=== PATIENT | female | born 1975 | race Caucasian/White ===

== ENCOUNTER 2019-03-21 18:31 | Observation (INO) ==
[2019-03-21] MEDS ORDERED: IOPAMIDOL 100 ML BOTTLE IV ONE (18:32)
[2019-03-21] MEDS ORDERED: 0.9 % SODIUM CHLORIDE 1,000 ML IV ONE ×2 (18:50→21:29)
[2019-03-21] MEDS ORDERED: HYDROmorphone 2 MG/ML VIAL IV ONE ×2 (18:57)
[2019-03-21] MEDS ORDERED: PHENobarb/HYOSCY/ATROPINE/SCOP 1 DOSE BOTTLE PO ONE ×2 (18:59→21:31)
--- NOTE | 2019-03-21 19:16 | Emergency Department Note ---
Chest Pain HPI - General Chief Complaint: Chest Pain Stated Complaint: L sided chest pain Time Seen by Provider: 03/21/19 18:57 Source: patient, EMS Mode of arrival: EMS - Related Data Home Medications Medication Instructions Recorded Confirmed Cyanocobalamin (Vitamin B-12) 1,000 mcg PO DAILY 03/21/19 03/21/19 [Vitamin B-12] buPROPion HCL [Wellbutrin Xl] 150 mg PO DAILY 03/21/19 03/21/19 Allergies Allergy/AdvReac Type Severity Reaction Status Date / Time Sulfa (Sulfonamide Allergy Rash Verified 03/21/19 18:41 Antibiotics) Chest Pain PMH - Social History smoking status: Former smoker Course Course Narrative: Pt was seen by Dr. Contreras today. Vital Signs Temperature 97.1 F 03/21/19 18:32 Pulse Rate 97 H 03/21/19 18:32 Respiratory Rate 26 H 03/21/19 18:32 Blood Pressure 153/93 03/21/19 18:32 Pulse Oximetry (%) 99 03/21/19 18:32 Temperature 97.1 F 03/21/19 18:32 Pulse Rate 78 03/21/19 18:46 Respiratory Rate 19 03/21/19 18:46 Blood Pressure 121/77 03/21/19 18:46 Pulse Oximetry (%) 99 03/21/19 18:46 Chest Pain - Lab Data Result diagrams: 03/21/19 19:00 03/21/19 19:00 Disposition Pt seen by CASE FINISHING MACHINE ADJUSTER/PA only: No (Dr. Contreras is seeing the patient today) Disposition: Still a Patient Referrals: Nichole Hollins [Primary Care Provider] -
[2019-03-21 19:19] LABS: POC Blood Urea Nitrogen 6 mg/dl (6-20); POC CO2 19 mmol/L (22-30); POC Calcium, Ionized 1.05 mmol/L (1.16-1.32); POC Chloride 107 mmol/L (96-108); POC Glucose, Random 86 mg/dL (70-105); POC Potassium 4.5 mmol/L (3.3-5.1); POC Sodium 139 mmol/L (133-145)
--- NOTE | 2019-03-21 19:23 | Emergency Department Note ---
Chest Pain HPI - General Chief Complaint: Chest Pain Stated Complaint: L sided chest pain Time Seen by Provider: 03/21/19 18:57 Source: patient, EMS Mode of arrival: EMS - History of Present Illness MD complaint: chest pain Onset (ago): hour(s) Duration: constant Onset: other (After drinking alcohol) Pain Location: substernal, epigastric Severity: moderate Severity scale (1-10): 10 Quality: tightness, sharp Pain Radiation: back Improves with: nothing, other (Patient had fentanyl in the ambulance as well as Dilaudid here) Worsens with: nothing Associated symptoms: Reports: nausea Treatments prior to arrival chest pain: other (Fentanyl) - Related Data Home Medications Medication Instructions Recorded Confirmed Cyanocobalamin (Vitamin B-12) 1,000 mcg PO DAILY 03/21/19 03/21/19 [Vitamin B-12] buPROPion HCL [Wellbutrin Xl] 150 mg PO DAILY 03/21/19 03/21/19 Allergies Allergy/AdvReac Type Severity Reaction Status Date / Time Sulfa (Sulfonamide Allergy Rash Verified 03/21/19 18:41 Antibiotics) Review of Systems All systems ED: reviewed and negative except as stated. Chest Pain PMH - Past Medical History Medical history: Reports: other (Has had one other episode of abdominal pain like this in the past) Surgical history ED: Reports: cholecystectomy MANAGER NON PROFIT history: Reports: non-contributory - Social History smoking status: Former smoker Physical Exam Limitations: no limitations General appearance: alert, in distress Head: atraumatic, normocephalic Eye: Present: normal appearance, PERRL, EOMI. Absent: scleral icterus, conjunctival injection ENT: Present: normal oropharynx, mucous membranes moist Neck: Present: trachea midline. Absent: lymphadenopathy, thyromegaly Chest: Present: symmetric chest wall rise Respiratory: Present: normal lung sounds bilaterally. Absent: respiratory distress, wheezes, stridor, accessory muscle use, prolonged expiratory phase Cardiovascular: Present: regular rate, normal rhythm. Absent: systolic murmur, diastolic murmur Abdominal: Present: soft, tenderness. Absent: distention, guarding, rebound, rigidity, organomegaly, mass Abdominal tenderness: Present: epigastrium Extremities: Absent: pedal edema, pretibial edema, calf tenderness Back: Present: normal inspection, full ROM. Absent: CVA tenderness (R), CVA tenderness (L), spinous process tenderness Neurological: Present: alert, oriented X3 Psychiatric: Present: normal affect, normal mood Skin: Present: warm, dry Course Course Narrative: 44-year-old female presenting to the emergency department chief complaint of midepigastric abdominal pain that radiates into her back also into her chest as well. Patient without vomiting diarrhea, she does have nausea. Patient in extreme pain on presentation was treated with Dilaudid and fentanyl as well as Toradol and Phenergan with benefit. Laboratory evaluation was also performed demonstrating elevated lipase with CT scan demonstrating potentially this partial small bowel obstruction. Differential diagnosis considered in this case included: Obstruction, perforation, mesenteric ischemia, Crohn's disease, ulcerative colitis, viral gastroenteritis, spontaneous bacterial peritonitis, ketoacidosis, adrenal insufficiency, foodborne illness, IBS, constipation, diverticulosis, diverticulitis, AAA, abdominal compartment syndrome, abdominal migraine, chronic abdominal pain, colonic pseudoobstruction, zoster, hypercalcemia, hypothyroidism, pulmonary causes, nephrolithiasis, pyelonep hritis, urinary tract infection, appendicitis, AMI, pancreatitis, peptic ulcer disease, GERD, gastritis, functional dyspepsia, gastroparesis, cyclical vomiting syndrome. Given findings on CT scan and labs discussed the case with general surgery Dr. Tsai and the consensus medical opinion is that absent her gallbladder patient very reasonably should be admitted to medical for alcoholic pancreatitis and potentially a partial small bowel obstruction. I discussed the case with Dr. High hospitalist and the consensus opinion was to use my medical judgment to determine if patient is going to be staying for more than 48 hours to midnight rule for will likely be going home within the next 24 hours. In my medical opinion at this time patient very likely will be discharged tomorrow however she is being admitted to the hospital and it can be difficult to discern what the clinical course will be however she is feeling substantially better after treatment in the emergency department. Her elevated lipase combined with abnormality on CT scan is sufficient to require hospitalization. I do not feel patient needs a NG tube at this point secondary to no vomiting currently. Vital Signs Temperature 97.1 F 03/21/19 18:32 Pulse Rate 97 H 03/21/19 18:32 Respiratory Rate 26 H 03/21/19 18:32 Blood Pressure 153/93 03/21/19 18:32 Pulse Oximetry (%) 99 03/21/19 18:32 Temperature 97.1 F 08/31/19 18:32 Pulse Rate 72 03/22/19 00:31 Respiratory Rate 13 03/22/19 00:31 Blood Pressure 112/74 03/22/19 00:31 Pulse Oximetry (%) 96 03/22/19 00:31 Chest Pain - Lab Data Result diagrams: 03/21/19 19:00 03/21/19 19:18 Lab Results 03/21/19 03/21/19 03/21/19 Range/Units 19:00 19:00 19:00 WBC 7.8 (4.5-11.0) K/mcL RBC 4.42 (4.00-5.20) M/mcL Hgb 14.0 (12.0-15.0) g/dL Hct 41.3 (36.0-48.0) % POC Hct (36.0-48.0) % MCV 93.4 (80.0-100.0) fL MCH 31.7 (26.0-34.0) pg MCHC 33.9 (31.0-36.0) g/dL RDW 12.1 (11.5-14.5) % Plt Count 213 (140-440) K/mcL MPV 9.9 (7.4-10.4) fL Gran % 63.5 (38.0-78.0) % Lymph % (Auto) 28.9 (15.5-49.0) % [place] % (Auto) 6.2 (1.0-12.0) % Eos % (Auto) 1.0 (0.0-7.0) % Baso % (Auto) 0.4 (0.0-2.0) % Gran # 5.0 (1.8-8.0) K/mcL Lymph # (Auto) 2.3 (1.5-4.8) K/mcL [place] # (Auto) 0.5 (0.1-0.9) K/mcL Eos # (Auto) 0.1 (0.0-0.7) K/mcL Baso # (Auto) 0 (0.0-0.3) K/mcL D-Dimer (0.00-0.40) ug/ml POC Sodium (133-145) mmol/L Sodium TNP POC Potassium (3.3-5.1) mmol/L Potassium TNP POC Chloride (96-108) mmol/L Chloride TNP Carbon Dioxide TNP POC Total CO2 (22-30) mmol/L Anion Gap TNP POC BUN (6-20) mg/dl BUN TNP Creatinine TNP POC Creatinine (0.6-1.1) mg/dl GFR Calculation TNP Glucose TNP POC Glucose (70-105) mg/dL Calcium TNP POC WB Ioniz Calcium (1.16-1.32) mmol/L Total Bilirubin TNP AST TNP ALT TNP Alkaline Phosphatase TNP Troponin T TNP Total Protein TNP Albumin TNP Globulin TNP Albumin/Globulin Ratio TNP Amylase TNP Lipase TNP 03/21/19 03/21/19 03/21/19 Range/Units 19:00 19:00 19:18 WBC (4.5-11.0) K/mcL RBC (4.00-5.20) M/mcL Hgb (12.0-15.0) g/dL Hct (36.0-48.0) % POC Hct 40.0 (36.0-48.0) % MCV (80.0-100.0) fL MCH (26.0-34.0) pg MCHC (31.0-36.0) g/dL RDW (11.5-14.5) % Plt Count (140-440) K/mcL MPV (7.4-10.4) fL Gran % (38.0-78.0) % Lymph % (Auto) (15.5-49.0) % [place] % (Auto) (1.0-12.0) % Eos % (Auto) (0.0-7.0) % Baso % (Auto) (0.0-2.0) % Gran # (1.8-8.0) K/mcL Lymph # (Auto) (1.5-4.8) K/mcL [place] # (Auto) (0.1-0.9) K/mcL Eos # (Auto) (0.0-0.7) K/mcL Baso # (Auto) (0.0-0.3) K/mcL D-Dimer < 0.27 (0.00-0.40) ug/ml POC Sodium 139 (133-145) mmol/L Sodium 139 POC Potassium 4.5 (3.3-5.1) mmol/L Potassium 3.5 POC Chloride 107 (96-108) mmol/L Chloride 105 Carbon Dioxide 20 L POC Total CO2 19 L (22-30) mmol/L Anion Gap 14.0 POC BUN 6 (6-20) mg/dl BUN 6 Creatinine 0.7 POC Creatinine 1.0 (0.6-1.1) mg/dl GFR Calculation 107 Glucose 79 POC Glucose 86 (70-105) mg/dL Calcium 8.4 L POC WB Ioniz Calcium 1.05 L (1.16-1.32) mmol/L Total Bilirubin 0.4 AST 43 H ALT 21 Alkaline Phosphatase 75 Troponin T Total Protein 6.6 Albumin 4.0 Globulin 2.6 Albumin/Globulin Ratio 1.5 Amylase 321 H Lipase 787 H 03/21/19 Range/Units 19:18 WBC (4.5-11.0) K/mcL RBC (4.00-5.20) M/mcL Hgb (12.0-15.0) g/dL Hct (36.0-48.0) % POC Hct (36.0-48.0) % MCV (80.0-100.0) fL MCH (26.0-34.0) pg MCHC (31.0-36.0) g/dL RDW (11.5-14.5) % Plt Count (140-440) K/mcL MPV (7.4-10.4) fL Gran % (38.0-78.0) % Lymph % (Auto) (15.5-49.0) % [place] % (Auto) (1.0-12.0) % Eos % (Auto) (0.0-7.0) % Baso % (Auto) (0.0-2.0) % Gran # (1.8-8.0) K/mcL Lymph # (Auto) (1.5-4.8) K/mcL [place] # (Auto) (0.1-0.9) K/mcL Eos # (Auto) (0.0-0.7) K/mcL Baso # (Auto) (0.0-0.3) K/mcL D-Dimer (0.00-0.40) ug/ml POC Sodium (133-145) mmol/L Sodium POC Potassium (3.3-5.1) mmol/L Potassium POC Chloride (96-108) mmol/L Chloride Carbon Dioxide POC Total CO2 (22-30) mmol/L Anion Gap POC BUN (6-20) mg/dl BUN Creatinine POC Creatinine (0.6-1.1) mg/dl GFR Calculation Glucose POC Glucose (70-105) mg/dL Calcium POC WB Ioniz Calcium (1.16-1.32) mmol/L Total Bilirubin AST ALT Alkaline Phosphatase Troponin T < 0.01 Total Protein Albumin Globulin Albumin/Globulin Ratio Amylase Lipase - EKG Data EKG shows normal: sinus rhythm Rate: normal Rhythm: NSR [place]ott/QRS: normal QTc: normal Interpretation: no acute changes Disposition Pt seen by PRODUCTION PLANNER SCHEDULER/PA only: No Clinical Impression: Small bowel obstruction, partial Pancreatitis Qualifiers: Chronicity: acute Pancreatitis type: alcohol induced Acute pancreatitis complication: no infection or necrosis Qualified Code(s): K85.20 - Alcohol induced acute pancreatitis without necrosis or infection Disposition: Xfer As Inpt ([facility]) Condition: Fair Instructions: Pancreatitis (ED) Referrals: Nichole Hollins [Primary Care Provider] -
[2019-03-21 19:43] LABS: Basophils # (Auto) 0 K/mcL (0.0-0.3); Basophils % (Auto) 0.4 % (0.0-2.0); Eosinophils # (Auto) 0.1 K/mcL (0.0-0.7); Granulocytes % (Auto) 63.5 % (38.0-78.0); Hematocrit 41.3 % (36.0-48.0); Lymphocytes # (Auto) 2.3 K/mcL (1.5-4.8); Lymphocytes % (Auto) 28.9 % (15.5-49.0); Mean Cell Volume 93.4 fL (80.0-100.0); Mean Corpuscular HGB Conc 33.9 g/dL (31.0-36.0); Mean Platelet Volume 9.9 fL (7.4-10.4); Monocytes # (Auto) 0.5 K/mcL (0.1-0.9); Monocytes % (Auto) 6.2 % (1.0-12.0); Platelet Count 213 K/mcL (140-440); RBC 4.42 M/mcL (4.00-5.20); Red Cell Distribution Width 12.1 % (11.5-14.5); WBC 7.8 K/mcL (4.5-11.0)
[2019-03-21 21:11] LABS: ALT/SGPT 21 U/l (0-40); AST/SGOT 43 U/l (0-37); Albumin/Globulin Ratio 1.5 (1.0-2.3); Alkaline Phosphatase 75 U/L (39-117); Amylase 321 U/L (28-100); Bilirubin,Total 0.4 mg/dL (0.0-1.0); Blood Urea Nitrogen 6 mg/dl (6-20); Calcium 8.4 mg/dl (8.6-10.4); Carbon Dioxide 20 mmol/L (22-30); Chloride 105 mmol/L (96-108); Globulin 2.6 gm/dL (2.2-3.7); Glomerular Filtration Rate 107; Glucose 79 mg/dL (70-105)
[2019-03-21] MEDS ORDERED: PROMETHAZINE 25 MG/ML VIAL IV ONE (21:29)
[2019-03-21] MEDS ORDERED: KETOROLAC 30 MG/ML VIAL IV ONE (21:29)
[2019-03-21] MEDS ORDERED: ONDANSETRON 4 MG/2 ML VIAL IV PRN (23:55)
[2019-03-21] MEDS ORDERED: HYDROmorphone 2 MG/ML VIAL IV PRN (23:55)
[2019-03-22] MEDS: 0.45 % SODIUM CHLORIDE 1,000 ML IV SCH ×2 (01:09→11:14)
[2019-03-22] MEDS ORDERED: 0.9 % SODIUM CHLORIDE 10 ML SYRINGE IV SCH (06:00)
--- NOTE | 2019-03-22 08:23 | XRay Report ---
HISTORY: Chest pain and dyspnea FINDINGS: The lungs are clear and well expanded. The heart size, pulmonary vasculature, mediastinum, nazario and pleura are normal. The patient is leaning to the right. The bones otherwise appear normal. IMPRESSION: Normal chest Interpreted and Authenticated by: Adalberto Finley 03/22/19
--- NOTE | 2019-03-22 08:32 | Cat Scan Report ---
History: Epigastric pain and nausea TECHNIQUE: The patient was imaged following intravenous but no oral contrast from the diaphragm to the symphysis pubis. Sagittal and coronal reformats were created. Radiation exposure was limited using dose reduction technology. Lung bases are clear. There are bilateral subpectoral implants. The heart is normal in size. No hiatus hernia is present. There are couple simple cysts scattered in the liver. The largest is located centrally in the right lobe and measures 11 mm. No solid mass is seen. The overall size of the liver is normal. The gallbladder has been removed. The bile ducts are borderline dilated. Distal common bile duct measures up to 1 cm. This tapers as it passes through the head of the pancreas to the ampulla. There is no evidence of a stone in the distal duct. No mass or inflammation are present in the pancreas. The spleen and adrenals are normal. The kidneys are normal size shape and contour and there is no kidney stone, hydronephrosis or radiographic evidence of pyelonephritis. The aorta and inferior vena cava are normal and there is no plaque formation. There are several loops of mildly dilated jejunum in the left upper quadrant and mid abdomen. They range from 3 to 3.5 cm in size. The lei do not appear to be abnormally thickened or inflamed. The ileum is normal in caliber. There is an ill-defined transition in the mid abdomen but no mass is identified. There is a moderate amount stool throughout the colon. The colon is not abnormally distended. The appendix is noninflamed. No diverticula are present. The stomach is not distended. Few air-fluid levels are present in the small bowel. The uterus is absent. There is a 2.6 x 2.9 cm simple cyst in the left adnexa. Right ovary is normal. Urinary bladder is normally distended and has a thin wall. Trace amount of free fluid is present in the cul-de-sac. IMPRESSION: Nonspecific mild dilatation of the proximal small intestine. This could be due to gastroenteritis or low-grade small bowel obstruction. Mildly dilated bile ducts. This may be a reservoir effect following the prior cholecystectomy and less likely a stricture at the ampulla Scattered cysts in the liver and large follicle in the left ovary Interpreted and Authenticated by: Adalberto Finley 03/22/19
--- NOTE | 2019-03-22 08:43 | Internal Med History&Physical ---
Medical - H&P: [facility] Patient information: Note initiated : 03/22/19 at 8:41 am Service Date, if different from initiated Date: [] Patient: Anitha Trent 44 y/o F admitted on 03/22/19 for L sided chest pain. Chief Complaint: Epigastric/chest pain. History of present illness: Ms. Trent is a 44 year old F who presented to the emergency department a few hours of lower chest/epigastric pain. It was sudden in onset, have been constant and moderate to severe nature. She recalls one prior episode of fairly severe lower chest pain, however that was in the setting of receiving a lidocaine to repair an ear laceration. It radiated to her back, as well as up into her chest and was associated with some nausea, no emesis. No dyspnea, no cough, no fever or chills, no diarrhea. In the emergency department, evaluation was notable for elevated lipase in the 700 range. Imaging of the abdomen showed nonspecific small bowel changes, though the initial wet read was possible transition point and partial small bowel obstruction. She never did have significant emesis, abdominal distention or other symptoms consistent with a bowel obstruction. Further history, the patient has beer on the weekend. Onset was after drinking 1 beer on the evening of presentation. She is previously had a cholecystectomy. No history of high triglycerides, only takes Wellbutrin. Patient was hospitalized for symptomatic management of acute pancreatitis and for observation for evidence of bowel obstruction. All systems: reviewed and no additional remarkable complaints except as stated Medical - H&P: PMH Medical history: Depression Surgical history: Cholecystectomy Pertinent family history: No history of recurrent pancreatitis in the family Social history: Lives with her , drinks socially on weekends. No tobacco use. Medical - H&P: Meds Home Medications Medication Instructions Recorded Confirmed Type Cyanocobalamin (Vitamin B-12) 1,000 mcg PO DAILY 03/21/19 History [Vitamin B-12] buPROPion HCL [Wellbutrin Xl] 150 mg PO DAILY 03/21/19 03/21/19 History Allergies Allergy/AdvReac Type Severity Reaction Status Date / Time Sulfa (Sulfonamide Allergy Rash Verified 03/21/19 18:41 Antibiotics) Medical - H&P: Exam - Constitutional Vitals: Temp Pulse Resp BP Pulse Ox 99.1 F H 60 16 124/81 98 03/22/19 07:29 03/22/19 07:29 03/22/19 07:29 03/22/19 07:29 03/22/19 07:29 Exam: GENERAL: Alert, oriented, in no acute distress. Cooperative, appears stated age. HEENT: Atraumatic. PERRL, conjunctiva clear, no scleral icterus. Hearing grossly intact. Oropharynx with moist mucous membranes. NECK: Supple without meningismus, no thyromegaly RESPIRATORY: Breath sounds clear bilaterally without wheezes or rhonchi. Respiratory effort is unlabored. CARDIOVASCULAR: Regular rate and rhythm, no murmur gallop or rub. No peripheral edema. Carotid pulses 2+. GI: Abdomen (at the time of my exam) soft, nontender, no guarding or rebound. Bowel sounds are present. No hepatosplenomegaly. MUSCULOSKELETAL: No joint erythema or swelling, normal range of motion in all extremities. SKIN: Intact, warm, dry. No lesions. Skin turgor normal. NEUROLOGIC: Cranial nerves II through XII grossly intact. Muscle mass normal. Strength 5/5 in the upper and lower extremities. Sensation intact to light touch bilaterally. PSYCHIATRIC: Alert, oriented x3, normal mood and affect, normal insight. Medical - H&P: Reslt - Labs CBC & Chem 7: 03/21/19 19:00 03/21/19 19:18 Labs: Short CBC 03/21/19 Range/Units 19:00 WBC 7.8 (4.5-11.0) K/mcL Hgb 14.0 (12.0-15.0) g/dL Hct 41.3 (36.0-48.0) % Plt Count 213 (140-440) K/mcL BMP 03/21/19 03/21/19 19:00 19:18 Sodium TNP 139 Potassium TNP 3.5 Chloride TNP 105 Carbon Dioxide TNP 20 L BUN TNP 6 Creatinine TNP 0.7 Glucose TNP 79 Calcium TNP 8.4 L Cardiac Enzymes 03/21/19 03/21/19 Range/Units 19:00 19:18 Troponin T TNP < 0.01 Liver Function 03/21/19 03/21/19 Range/Units 19:00 19:18 Total Bilirubin TNP 0.4 AST TNP 43 H ALT TNP 21 Alkaline Phosphatase TNP 75 Albumin TNP 4.0 - EKG Data -: EKG Reviewed by Myself (Normal sinus rhythm, no injury pattern) - Imaging and Cardiology CT scan - abdomen Status: image reviewed by me Additional comments: IMPRESSION: Nonspecific mild dilatation of the proximal small intestine. This could be due to gastroenteritis or low-grade small bowel obstruction. Mildly dilated bile ducts. This may be a reservoir effect following the prior cholecystectomy and less likely a stricture at the ampulla. Scattered cysts in the liver and large follicle in the left ovary Chest x-ray Status: image reviewed by me Additional comments: Clear, normal chest x-ray Medical - H&P: A/P (1) Pancreatitis Current visit: Yes Status: Resolved - Narrative A/P Narrative: 44-year-old female presenting with acute onset of epigastric pain, radiating to her chest and into her back. After evaluation, found to have elevated lipase. Also had initial concern for possible partial small bowel obstruction based on wet read of CT, though she did not clinically have symptoms of a bowel ob struction. Etiology of pancreatitis likely related to alcohol intake. She drinks socially on the weekends, onset was after a single serving of beer. She is previously had a cholecystectomy, making biliary causes unlikely. No high risk medications for pancreatitis, no familial history, no history of hypertriglyceridemia. Plan: -Observation hospitalization -Pain control -Hydration -Antiemetics as needed Medical - H&P: Qual - VTE Deep Vein Thrombosis/Pulmonary Embolism Present on Admission: No
--- NOTE | 2019-03-22 09:06 | Discharge Summary ---
Medical - DS: Prov Patient information: Note initiated : 03/22/19 at 9:04 am Service Date, if different from initiated Date: [] Patient: Anitha Trent 44 y/o F admitted on 03/22/19 for L sided chest pain. Chief Complaint: [] Date of admission: 03/22/19 00:50 Discharge date: 03/22/19 Primary care physician: Nichole Hollins Admitting clinician: Eli High Attending physician on discharge: Eli High Medical - DS: Meds - Discharge Medications Active and Home Medications: Home Medications Cyanocobalamin (Vitamin B-12) [Vitamin B-12] 1,000 mcg PO DAILY 03/21/19 [History Last Taken Unknown] buPROPion HCL [Wellbutrin Xl] 150 mg PO DAILY 03/21/19 [History Confirmed 03/21/19 Last Taken Unknown] Medical - DS: Hosp Hospital Course: The patient is a 44-year-old female who presented to the emergency department with moderate to severe epigastric/lower chest pain radiated to her back as well as into the chest. Evaluation revealed evidence of acute pancreatitis with a lipase in the 700 range. There is also concern on CT scan from the wet read of possible small bowel obstruction and transition point, however the formal radiologist interpretation was nonspecific dilatation of the small bowel. This likely was a sequela of the inflammation from acute pancreatitis. The patient was hospitalized in observation shortly after midnight. She continued with hydration. She required minimal further antiemetics or pain medications. By the following morning she is feeling quite well, had no a bdominal pain at all. She had no nausea or vomiting. No abdominal distention. She had not had any fever and vital signs were stable. 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 The acute pancreatitis likely was secondary to alcohol, though she is only had one serving of beer prior to the onset of attack. She generally has beer on weekends, does not have binge drinking or drink to excess. Other etiologies of pancreatitis were felt less likely, she is status post cholecystectomy, is not on high risk medications, does not have hypertriglyceridemia, there is no family history of pancreatitis. We discussed the likely association with alcohol, currently plans to remain abstinent. Patient was doing quite well and was subsequently discharged to home. She had a previously scheduled appointment with Dr. Hollins on 03/24, she will keep that appointment. Recommendations for follow-up: Recheck comprehensive metabolic panel with lipase. Discharge diagnosis: Acute pancreatitis, likely alcohol related Medical - DS: Exam - Constitutional Vitals: Vital Signs Temp Pulse Pulse Resp BP BP BP 03/22/19 07:29 99.1 F H 60 16 124/81 03/22/19 04:07 97.9 F 68 14 113/69 03/22/19 00:50 97.5 F 68 14 117/82 03/22/19 00:31 72 13 112/74 03/22/19 00:16 76 13 115/75 03/22/19 00:01 77 12 117/79 03/22/19 00:00 97.5 F 68 14 117/82 03/21/19 23:46 76 14 118/81 03/21/19 23:31 78 13 115/74 03/21/19 23:16 80 13 119/72 03/21/19 23:01 75 14 116/74 03/21/19 22:46 81 14 118/73 03/21/19 22:31 82 16 122/79 03/21/19 22:26 83 18 129/82 03/21/19 22:17 73 129/82 03/21/19 21:46 78 14 110/96 03/21/19 21:31 20 107/86 03/21/19 21:21 86 18 121/80 03/21/19 21:19 76 13 03/21/19 21:16 85 121/80 03/21/19 21:01 73 12 111/66 03/21/19 20:46 76 13 115/72 03/21/19 20:31 73 14 119/66 03/21/19 20:25 82 18 115/63 03/21/19 20:16 13 115/63 03/21/19 20:02 16 03/21/19 20:01 108/68 03/21/19 19:46 121/73 03/21/19 19:31 116/61 03/21/19 19:06 84 131/85 03/21/19 19:01 88 17 93/69 03/21/19 18:46 78 19 121/77 03/21/19 18:41 89 19 153/93 03/21/19 18:32 97.1 F 97 H 26 H 153/93 Pulse Ox 03/22/19 07:29 98 03/22/19 04:07 97 03/22/19 00:50 96 03/22/19 00:31 96 03/22/19 00:16 95 03/22/19 00:01 95 03/22/19 00:00 96 03/21/19 23:46 97 03/21/19 23:31 96 03/21/19 23:16 96 03/21/19 23:01 96 03/21/19 22:46 97 03/21/19 22:31 96 03/21/19 22:26 97 03/21/19 22:17 100 03/21/19 21:46 100 03/21/19 21:31 95 03/21/19 21:21 99 03/21/19 21:19 99 03/21/19 21:16 99 03/21/19 21:01 98 03/21/19 20:46 97 03/21/19 20:31 97 03/21/19 20:25 97 03/21/19 20:16 03/21/19 20:02 03/21/19 20:01 03/21/19 19:46 03/21/19 19:31 03/21/19 19:06 100 03/21/19 19:01 99 03/21/19 18:46 99 03/21/19 18:41 100 03/21/19 18:32 99 Intake and Output 03/21/19 03/22/19 03/22/19 21:59 05:59 13:59 Intake Total 1000 1000 Balance 1000 1000 Intake: IV 1000 1000 Sodium Chloride 0.9% 1,000 ml @ 1000 1000 Wide Open IV BOLUS ONE Rx#: [id number] Oral 0 Other: Weight 154 lb 158 lb General appearance: no acute distress - Respiratory Respiratory exam: Present: normal respiratory exam - Cardiovascular Cardiovascular exam: Present: normal rate and rhythm. Absent: systolic murmur, tachycardia - GI/Abdominal GI/Abdominal exam: Present: normal bowel sounds, soft. Absent: distended, guarding, organomegaly, tenderness - Extremities Exam Extremities exam: Absent: pedal edema - Neurological Exam Neurological exam: Present: alert, oriented X3 Medical - DS: Data Labs on day of discharge: Labs from last 24 hours 03/21/19 03/21/19 03/21/19 19:18 19:18 19:00 WBC RBC Hgb Hct POC Hct MCV MCH MCHC RDW Plt Count MPV Gran % Lymph % (Auto) [place] % (Auto) Eos % (Auto) Baso % (Auto) Gran # Lymph # (Auto) [place] # (Auto) Eos # (Auto) Baso # (Auto) D-Dimer < 0.27 POC Sodium Sodium 139 POC Potassium Potassium 3.5 POC Chloride Chloride 105 Carbon Dioxide 20 L POC Total CO2 Anion Gap 14.0 POC BUN BUN 6 Creatinine 0.7 POC Creatinine GFR Calculation 107 Glucose 79 POC Glucose Calcium 8.4 L POC WB Ioniz Calcium Total Bilirubin 0.4 AST 43 H ALT 21 Alkaline Phosphatase 75 Troponin T < 0.01 Total Protein 6.6 Albumin 4.0 Globulin 2.6 Albumin/Globulin Ratio 1.5 Amylase 321 H Lipase 787 H 03/21/19 03/21/19 03/21/19 19:00 19:00 19:00 WBC RBC Hgb Hct POC Hct 40.0 MCV MCH MCHC RDW Plt Count MPV Gran % Lymph % (Auto) [place] % (Auto) Eos % (Auto) Baso % (Auto) Gran # Lymph # (Auto) [place] # (Auto) Eos # (Auto) Baso # (Auto) D-Dimer POC Sodium 139 Sodium TNP POC Potassium 4.5 Potassium TNP POC Chloride 107 Chloride TNP Carbon Dioxide TNP POC Total CO2 19 L Anion Gap TNP POC BUN 6 BUN TNP Creatinine TNP POC Creatinine 1.0 GFR Calculation TNP Glucose TNP POC Glucose 86 Calcium TNP POC WB Ioniz Calcium 1.05 L Total Bilirubin TNP AST TNP ALT TNP Alkaline Phosphatase TNP Troponin T TNP Total Protein TNP Albumin TNP Globulin TNP Albumin/Globulin Ratio TNP Amylase TNP Lipase TNP 03/21/19 19:00 WBC 7.8 RBC 4.42 Hgb 14.0 Hct 41.3 POC Hct MCV 93.4 MCH 31.7 MCHC 33.9 RDW 12.1 Plt Count 213 MPV 9.9 Gran % 63.5 Lymph % (Auto) 28.9 [place] % (Auto) 6.2 Eos % (Auto) 1.0 Baso % (Auto) 0.4 Gran # 5.0 Lymph # (Auto) 2.3 [place] # (Auto) 0.5 Eos # (Auto) 0.1 Baso # (Auto) 0 D-Dimer POC Sodium Sodium POC Potassium Potassium POC Chloride Chloride Carbon Dioxide POC Total CO2 Anion Gap POC BUN BUN Creatinine POC Creatinine GFR Calculation Glucose POC Glucose Calcium POC WB Ioniz Calcium Total Bilirubin AST ALT Alkaline Phosphatase Troponin T Total Protein Albumin Globulin Albumin/Globulin Ratio Amylase Lipase - Additional Comments CT scan - abdomen IMPRESSION: Nonspecific mild dilatation of the proximal small intestine. This could be due to gastroenteritis or low-grade small bowel obstruction. Mildly dilated bile ducts. This may be a reservoir effect following the prior cholecystectomy and less likely a stricture at the ampulla. Scattered cysts in the liver and large follicle in the left ovary Chest x-ray Clear, normal chest x-ray Medical - DS: A/P - Patient/Caregiver Discharge Instructions Activity: increase activity as tolerated Diet: Low Fat Additional Instructions: Begin with a low-fat diet, then advance as tolerated over the next 2 to 3 days to a regular diet. Call your physician for fevers above 100.5 Activity: increase activity as tolerated Diet: Low Fat - Problem Maintenance (1) Pancreatitis Status: Resolved Qualifiers: Chronicity: acute Pancreatitis type: alcohol induced Acute pancreatitis complication: no infection or necrosis Qualified Code(s): K85.20 - Alcohol induced acute pancreatitis without necrosis or infection - Follow up Plan Follow up with: Nichole Hollins [Primary Care Provider] - (Follow-up as scheduled on Saturday) Disposition: Home, Self-Care Care Plan Goals: This discharge packet is provided to you to help keep you informed about your care. We want to ensure you get everything you need when you go home. You will also be receiving a call from us in a few days to follow up with you and see how you are doing since your discharge. This gives us a chance to listen to any concerns you maybe experiencing since you were discharged or any additional needs you may have, as well as providing us feedback on your care experience. We strive to always provide excellent care and thank you for your feedback and for choosing [facility]. Prognosis: Good Rehab Potential: Good Overall status at discharge: patient is back to baseline Medical - DS: Qual - VTE Deep Vein Thrombosis/Pulmonary Embolism Present on Admission: No
== END 2019-03-22 09:45 | disposition home or self-care (01) ==
LOC: ED 18:31 → MEDSUR 18:31
PROVIDERS: ADMIT Internal Medicine; ATTEND Internal Medicine